=== PATIENT | male | born 1965 | race Caucasian/White ===

== ENCOUNTER → 2025-06-04 | Outpatient (CLI) | payer SELFPAY ==
[2025-06-04 11:46] LABS: Prostate Specific Antigen 0.621 ng/mL (0.000-4.000)
[2025-06-04 12:28] LABS: Alanine Aminotransfer (ALT/SGP 42 U/L (12-78); Albumin, Blood 3.8 g/dL (3.4-5.0); Albumin/Globulin Ratio 1.2 (0.8-1.8); Anion Gap 13 mmol/L (6-16); Aspartate Aminotrans (AST/SGOT 23 U/L (12-37); Bilirubin, Total 1.3 mg/dL (0.1-1.0); Blood Urea Nitrogen 19 mg/dL (8-24); CHOL/HDL RATIO 3.3; CO2, Blood 29 mmol/L (21-32); Calcium, Blood 9.3 mg/dL (8.5-10.1); Chloride, Blood 105 mmol/L (98-108); Cholesterol 159 mg/dL (50-200); Creatinine, Blood 1.10 mg/dL (0.60-1.20); Globulin, Blood 3.2 g/dL (2.2-4.0); Glucose, Blood 109 mg/dL (70-99); HDL Cholesterol 48 mg/dL (>39); LDL/HDL RATIO 1.8; Low Density Lipoprotein Chol 87 mg/dL (<110); Potassium, Blood 3.9 mmol/L (3.5-5.5); Sodium, Blood 143 mmol/L (136-145); Thyroid Stimulating Hormone 0.810 uIU/mL (0.360-4.800); Total Protein, Blood 7.0 g/dL (6.4-8.2); Triglycerides 122 mg/dL (30-160); Very Low Density Lipoprot Chol 24 mg/dL (6-32)
[2025-06-04 12:34] LABS: BASOPHILS ABSOLUTE AUTO 0.03 K/mm3 (0.00-0.23); BASOPHILS PERCENT AUTO 0 % (0-2); EOSINOPHILS ABSOLUTE AUTO 0.20 K/mm3 (0.00-0.68); EOSINOPHILS PERCENT AUTO 3 % (0-6); Hematocrit 51.1 % (37.0-53.0); Hemoglobin 17.1 g/dL (13.5-17.5); IMMATURE GRAN ABSOLUTE AUTO 0.06 K/mm3 (0.00-0.10); IMMATURE GRAN PERCENT AUTO 1 % (0-1); LYMPHOCYTES ABSOLUTE AUTO 1.94 K/mm3 (0.84-5.20); LYMPHOCYTES PERCENT AUTO 28 % (21-46); MONOCYTES ABSOLUTE AUTO 0.52 K/mm3 (0.16-1.47); MONOCYTES PERCENT AUTO 8 % (4-13); Mean Corpuscular HGB Conc 33.5 g/dL (31.5-36.5); Mean Corpuscular Volume 86 fL (80-100); NEUTROPHILS ABSOLUTE AUTO 4.10 K/mm3 (1.96-9.15); NEUTROPHILS PERCENT AUTO 60 % (41-73); NRBC ABSOLUTE 0.00 K/mm3 (0.00-0.02); NRBC Auto 0.0 /100 WBC (0.0-0.2); Platelet Count 173 K/mm3 (150-400); RDW Coefficient Variation 12.7 % (11.7-14.2); RDW Standard Deviation 39.0 fL (35.1-46.3)
== END ==
LOC: LAB SHORT 08:48 → LAB 08:48
PROVIDERS: Family Medicine
DX: Z12.5 Encounter for screening for malignant neoplasm of prostate (principal); E78.49 Other hyperlipidemia; I10 Essential (primary) hypertension
CPT/HCPCS: 36415; 80053; 80061; 84443; 85025; G0103